=== PATIENT | female | born 1940 | race Caucasian/White ===

== ENCOUNTER 2019-07-08 19:02 | Inpatient (IN) | payer OTHER ==
[~2019-07-08] VITALS: Ht 170.2 cm; Wt 68.0 kg
[2019-07-08] MEDS ORDERED: INTEGRA PLUS C1 EACH (19:14)
[2019-07-08] MEDS ORDERED: THEOPHYLLINE A300 M1 (19:14)
[2019-07-08] MEDS ORDERED: VITAMIN A10000 UNI2 (19:15)
[2019-07-08] MEDS ORDERED: TIROSINT50 MCG (19:16)
[2019-07-08] MEDS ORDERED: DULOXETINE (19:17)
[2019-07-08] MEDS ORDERED: ATORVASTATIN CA40 MG (19:19)
--- NOTE | 2019-07-08 19:20 | NUR ---
PTE SE RECIBE POR DIFICULTAD RESPIRATORIA TOS MIESHA Y VOMITOS REFIERE PARAMEDICO.
--- NOTE | 2019-07-08 19:42 | NUR ---
PTE MURRAY AVENDAÑO.
--- NOTE | 2019-07-08 20:56 | NUR ---
SE RECIBE PTE ALERTA QUE RESPONDE A ESTIMULOS DE DOLOR. SE RECIBE PTE EN CAMA CON BARANDAS ELEVADAS. SE CONECTA PTE A MONITOR CARDIACO Y OXIMETRIA. SE CANALIZA PTE EN MANO Y BRAZO TRUNG AREAS LIBRES DE EDEMA Y DE ENROJECIMIENTO. SE RECIBE PTE CON RICHARDSON DRENANDO 200ML DE ORINA COLOR LISSETTE. SE LE MERCY CAMBIO DE PANAL Y SE OBSERVA ULCERA SACRAL. SE RANGEL PTE EN POSICION ARMSTRONG.
--- NOTE | 2019-07-08 23:11 | NUR ---
SE RECIBE PTE DEL TURNO ANTERIOR, ALERTA, EN CAMA NIVEL MAS BAJO, BARRETT DE IDENTIFICACION Y BARANDAS ELEVADAS POR PRECAUCION. SE OBSERVA CON CANULA NASAL A 3L/MIN, AL MOMENTO SATURANDO 96%. PTE CONECTADA A MONITOR CARDIACO Y OXIMETRIA DE PULSO. IV PATENTE Y FRANCHESCA DE EDEMA O ERITEMA CON 0.9% NSS @75ML/HR EN BRAZO LT. Y H/L EN MANO LT #18 EL MISMO PATENTE Y FRANCHESCA DE EDEMA O ERITEMA. PTE CON RICHARDSON PATENTE CON FECHA DE 06/27/19, CON APROXIMADAMENTE 300ML DE ORINA COLOR AMARILLO YARON INTENSO Y OBSCURO. PTE PENDIENTE A REALIZAR CT PO Y IV EL MISMO NOTIFICADO EN EL TURNO ANTERIOR A PERSONAL DE TURNO.
--- NOTE | 2019-07-09 04:15 | NUR ---
SE REALIZA CAMBIO DE PANAL A PTE E HIGIENE, LA MISMA CON EVACUACION COLOR TERRENCE Y PASTOSA, PTE TOLERA PROCEDIMIENTO Y SE MUESTRA COPERADORA. SE REALIZA CAMBIO DE POSICION HACIA LADO LT. SE MANTIENE CONECTADA A MONITOR CARDIACO Y OXIMETRIA DE PULSO Y BAJO OBSERVACION.
--- NOTE | 2019-07-09 07:13 | NUR ---
SE RECIBE PTE FEMENINA DE 79 YRS ALERTA CONCIENTE Y TRANQUILA EN COMPANIA DE FAMILIAR,.
--- NOTE | 2019-07-09 07:16 | NUR ---
SE RECIBE PTE FEMENINA DE 79 YRS ALERTA CONCIENTE Y TRANQUILA EN CAMA CON BARANDAS ELEVADA. PTE CONCETADA A MONITOR CARDIACO Y OXIMETRIA. PTE CON IVF PATENTE Y FRANCHESCA DE EDEMA. PTE PENDIENTE A SER REVALUADA.SE MANTIENE FRANCHESCA DE DOLOR AL MOMENTO.
--- NOTE | 2019-07-09 11:17 | NUR ---
11:00 SE DA NIKKIE A PTE. SE LE DA PLIO EN SECO CON TOALLITAS CALIENTE PTE. ALERTA CONCIENTE Y ROENTADA. REFERE PUEDE E COMMERCE ARCHITECT KALI PIERNA LA OTRA CON DIF DESDE QUE SUFRIO CAIDA Y ESTA EN CA
--- NOTE | 2019-07-09 11:29 | NUR ---
SE LE JAKY BOOD CULTURE Y CULTIVO DE ORINA. SE COMIENZA EN ANTIBIOTICO Y SE MANTIENE EN COSNULTA CON DR.MERCEDES DOWLING.
[2019-07-17] MEDS ORDERED: DULOXETINE HCL40 MG (15:06)
== END 2019-07-20 15:51 | disposition home health service (06) | DRG 871 ==
LOC: ER 19:02 → MEDJ 07-09 13:48 → SURG 07-09 13:48 → MEDI 07-10 16:54 → MEDJ 07-14 20:25
PROVIDERS: ADMIT Student in an Organized Health Care Education/Training Program
PROC: BB24ZZZ Computerized Tomography (CT Scan) of Bilateral Lungs (ICD-10-PCS; principal; 2019-07-09)
PROC: 4A033R1 Measurement of Arterial Saturation, Peripheral, Percutaneous Approach (ICD-10-PCS; 2019-07-09)
PROC: 3E0F7GC Introduction of Other Therapeutic Substance into Respiratory Tract, Via Natural or Artificial Opening (ICD-10-PCS; 2019-07-09)
PROC: BW21Y0Z Computerized Tomography (CT Scan) of Abdomen and Pelvis using Other Contrast, Unenhanced and Enhanced (ICD-10-PCS; 2019-07-09)
PROC: 0T9B70Z Drainage of Bladder with Drainage Device, Via Natural or Artificial Opening (ICD-10-PCS; 2019-07-09)
PROC: CP151ZZ Planar Nuclear Medicine Imaging of Spine using Technetium 99m (Tc-99m) (ICD-10-PCS; 2019-07-10)
PROC: CP1 Nuclear Medicine, Musculoskeletal System, Planar Nuclear Medicine Imaging (ICD-10-PCS; 2019-07-14)
DX: A41.9 Sepsis, unspecified organism (principal); J18.1 Lobar pneumonia, unspecified organism; M46.28 Osteomyelitis of vertebra, sacral and sacrococcygeal region; I96 Gangrene, not elsewhere classified; J90 Pleural effusion, not elsewhere classified; L89.152 Pressure ulcer of sacral region, stage 2; K56.41 Fecal impaction; N28.1 Cyst of kidney, acquired; E03.8 Other specified hypothyroidism; R31.0 Gross hematuria; R33.8 Other retention of urine; Z74.01 Bed confinement status

== ENCOUNTER 2020-03-20 15:13 | Emergency (ER) | payer OTHER ==
[~2020-03-20] VITALS: Ht 152.4 cm; Wt 45.4 kg
[~2020-03-20 15:13] MED LIST: ATORVASTATIN CA40 MG; DULOXETINE; DULOXETINE HCL40 MG; INTEGRA PLUS C1 EACH; THEOPHYLLINE A300 M1; TIROSINT50 MCG; VITAMIN A10000 UNI2
== END 2020-03-21 16:31 | disposition home or self-care (01) ==
LOC: ER 15:13
DX: R55 Syncope and collapse (principal); E86.0 Dehydration